=== PATIENT | male | born 1985 | race African-American/Black ===

== ENCOUNTER 2019-08-24 03:08 | Emergency (ER) | payer MEDICAID, OTHER ==
[~2019-08-24] VITALS: Ht 170.2 cm; Wt 65.0 kg
[2019-08-24 04:46] VITALS: BP 114/76
== END 2019-08-24 04:54 | disposition home or self-care (01) ==
LOC: ER 03:08
DX: H92.03 Otalgia, bilateral (principal); Z88.2 Allergy status to sulfonamides
CPT/HCPCS: 99281; 99282